=== PATIENT | female | born 1985 | race African-American/Black ===

== ENCOUNTER 2018-03-28 13:15 | Inpatient (IN) ==
[2018-03-28] MEDS ORDERED: SODIUM CHLORIDE 0.9% 1,000 ML IV STA (14:30)
[2018-03-28] MEDS ORDERED: ONDANSETRON 4 MG/2 ML VIAL IV STA (14:31)
[2018-03-28] MEDS ORDERED: ONDANSETRON 4 MG/2 ML VIAL ONE (14:43)
[2018-03-28 14:59] LABS: Basophils % 0.5 % (0.0-0.8); Eosinophils # 0.2 10*3/uL (0.0-0.87); Eosinophils % 1.7 % (0.00-10.9); Hematocrit 36.5 VOL% (35.7-47.0); Hemoglobin 12.2 GM/DL (12.0-16.0); Immature Granulocytes % 0.2 %; Immature Granulocytes Absolute 0.02 #; Lymphocytes # 3.4 10*3/uL (1.4-4.0); Lymphocytes % 39.4 % (21.3-54.2); Mean Corpuscular HGB Conc 33.4 GM/DL (32-36); Mean Corpuscular Hemoglobin 31 PG (27-34); Mean Corpuscular Volume 93.6 FL (87-102); Mean Platelet Volume 9.4 FL (9.6-12.0); Monocytes # 0.8 10*3/uL (0.11-0.8); Monocytes % 8.8 % (1.7-12.7); Neutrophils # 4.2 10*3/uL (1.4-7.4); Neutrophils % 49.4 % (38.7-73.9); Platelet Count 269 T/CUMM (130-400); Red Cell Distribution Width 13.5 % (9.3-17.3); White Blood Count 8.6 T/CUMM (4-12)
[2018-03-28 15:09] LABS: Apearance,Urine Slightly Hazy (Clear); Blood, Urine Negative (Negative); Glucose,Urine (UA) Negative (Negative); Hyaline Casts,Urine 1 /LPF (0-3); Ketones,Urine 5 mg/dL (Negative); Mucus,Urine Few /LPF (Occasional); Nitrite,Urine Negative (Negative); Protein,Urine 30 MG/DL; RBC,Urine 14 /HPF (0-4); Squamous Epithelial Cell,Urine Occasional /HPF (0-10); Urine Color Amber (Yellow); Urine Specific Gravity 1.029 (1.001-1.035); WBC,Urine 16 /HPF (0-6)
[2018-03-28 15:10] LABS: Bilirubin,Urine Small mg/dL (Negative)
[2018-03-28 15:21] LABS: Albumin 3.1 G/DL (3.4-5.0); Bilirubin,Total 0.4 MG/DL (0.2-1.0); Calcium 8.7 MG/DL (8.5-10.1); Osmolality,Calculated 275.4 MOS/KG (273-304); Potassium 3.9 MMOL/L (3.5-5.1); Total Protein 6.7 G/DL (6.4-8.3)
[2018-03-28] MEDS ORDERED: ONDANSETRON 4 MG/2 ML VIAL IV PRN (18:18)
[2018-03-28] MEDS ORDERED: MORPHINE 4 MG/1 ML VIAL IV PRN (18:18)
[2018-03-28] MEDS ORDERED: PROMETHAZINE 25 MG/1 ML VIAL IM PRN (18:18)
[2018-03-28] MEDS ORDERED: ACETAMINOPHEN 325 MG TABLET PO PRN (18:18)
[2018-03-28] MEDS: SODIUM CHLORIDE 0.45% 1,000 ML IV SCH (18:23)
[2018-03-29] MEDS: SODIUM CHLORIDE 0.45% 1,000 ML IV SCH ×3 (03:29→21:19)
[2018-03-29] MEDS: PANTOPRAZOLE 40 MG TABLET PO SCH (09:35)
[2018-03-29] MEDS: GENTAMICIN INJ 360 MG in SODIUM CHLORIDE 0.9% 100 ML IV SCH (13:13)
[2018-03-30] MEDS ORDERED: DIAZEPAM 5 MG TABLET PO ONE (05:00)
[2018-03-30] MEDS ORDERED: FAMOTIDINE 20 MG TABLET PO ONE (05:00)
[2018-03-30] MEDS: SODIUM CHLORIDE 0.45% 1,000 ML IV SCH ×2 (06:04→17:34)
[2018-03-30] MEDS ORDERED: LIDOCAINE 1%/EPI INJ 20 ML VIAL ONE (06:11)
[2018-03-30] MEDS ORDERED: TISSUE ADHESIVE 1 EACH APPLICATOR TOP ONE (06:11)
[2018-03-30] MEDS ORDERED: BUPIVACAINE 0.25% /EPI 10 ML VIAL ONE (06:11)
[2018-03-30] MEDS ORDERED: CLINDAMYCIN INJ 900 MG in PREMIX 1 EACH IV ONE (07:00)
[2018-03-30] MEDS: LACTATED RINGERS 1,000 ML IV SCH ×3 (07:20→12:17)
[2018-03-30] MEDS ORDERED: PROPOFOL 200 MG/20 ML VIAL IV ONE (09:57)
[2018-03-30] MEDS ORDERED: MIDAZOLAM 2 MG/2 ML VIAL ONE (09:57)
[2018-03-30] MEDS ORDERED: ONDANSETRON 4 MG/2 ML VIAL ONE ×2 (09:57→10:04)
[2018-03-30] MEDS ORDERED: SEVOFLURANE 1 UNIT/15 MINUTE INH ONE (09:57)
[2018-03-30] MEDS ORDERED: fentaNYL 100 MCG/2 ML VIAL ONE (09:57)
[2018-03-30] MEDS ORDERED: DEXAMETHASONE 10 MG/1 ML VIAL ONE (09:57)
[2018-03-30] MEDS ORDERED: SUCCINYLCHOLINE 200 MG/10 ML VIAL ONE (09:58)
[2018-03-30] MEDS ORDERED: ROCURONIUM 100 MG/10 ML VIAL IV ONE (09:58)
[2018-03-30] MEDS ORDERED: GLYCOPYRROLATE 0.4 MG/2 ML VIAL ONE (09:58)
[2018-03-30] MEDS ORDERED: LACTATED RINGERS 1,000 ML IV ONE (09:58)
[2018-03-30] MEDS ORDERED: KETOROLAC 30 MG/1 ML VIAL ONE (09:58)
[2018-03-30] MEDS ORDERED: METOPROLOL TARTRATE 5 MG/5 ML VIAL IV ONE (09:58)
[2018-03-30] MEDS ORDERED: ACETAMINOPHEN 1,000 MG/100 ML VIAL IV ONE (09:58)
[2018-03-30] MEDS ORDERED: NEOSTIGMINE 10 MG/10 ML VIAL ONE (09:58)
[2018-03-30] MEDS ORDERED: HYDROmorphone 2 MG/1 ML VIAL ONE (10:04)
[2018-03-30] MEDS: HYDROmorphone 2 MG/1 ML VIAL IV PRN ×4 (10:05→10:20)
[2018-03-30] MEDS ORDERED: ONDANSETRON 4 MG/2 ML VIAL IV PRN (10:12)
[2018-03-30 11:32] VITALS: BP 126/74
[2018-03-30] MEDS: PANTOPRAZOLE 40 MG TABLET PO SCH (12:15)
[2018-03-30] MEDS: GENTAMICIN INJ 360 MG in SODIUM CHLORIDE 0.9% 100 ML IV SCH (12:50)
== END 2018-03-30 15:50 | disposition home or self-care (01) | DRG 354 ==
LOC: N.ED 13:15 → N.EDINP 17:14 → N.2E 18:18
PROVIDERS: ADMIT Surgery; ATTEND Surgery